=== PATIENT | male | born 1995 | race American Indian/Alaskan Native ===

== ENCOUNTER 2018-01-30 03:31 | Emergency (ER) | payer OTHER ==
[2018-01-30 04:05] VITALS: BP 120/72
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
[2018-01-30] MEDS ORDERED: MOTRIN PO ONE (07:07)
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
== END 2018-01-30 08:24 | disposition home or self-care (01) ==
LOC: ED 03:31
DX: S00.03XA Contusion of scalp, initial encounter (principal); V49.49XA Driver injured in collision with other motor vehicles in traffic accident, initial encounter; Y93.89 Activity, other specified; Y92.89 Other specified places as the place of occurrence of the external cause; Y99.8 Other external cause status
CPT/HCPCS: 70450